=== PATIENT | female | born 1950 | race Caucasian/White ===

== ENCOUNTER 2021-09-09 16:37 | Emergency (ER) | payer BC ==
[~2021-09-09] VITALS: Ht 167.6 cm; Wt 61.2 kg
[2021-09-09 16:48] VITALS: BP_SYST 143
[2021-09-09 21:01] VITALS: BP_SYST 143
== END 2021-09-09 20:50 | disposition home or self-care (01) ==
LOC: SED 16:37
DX: S61.210A Laceration without foreign body of right index finger without damage to nail, initial encounter (principal); W45.8XXA Other foreign body or object entering through skin, initial encounter; Y93.89 Activity, other specified; Y92.89 Other specified places as the place of occurrence of the external cause; Y99.8 Other external cause status
CPT/HCPCS: 99282